=== PATIENT | female | born 1985 | race Two or more races ===

== ENCOUNTER 2016-09-22 09:10 | Day surgery (SDC) | payer OTHER ==
[2016-09-22] VITALS (8 sets, daily range): BP systolic 109–126; BP diastolic 59–79; PULSE 56–104; RESP 14–24; Ht 157.5 cm; Wt 90.0 kg
[~2016-09-22] VITALS: Ht 157.5 cm; Wt 90.0 kg
[~2016-09-22 09:10] MED LIST: CEFAZOLIN 2 GM/50 ML (PMX) 50 ML IVPB ONE; SOD CHLORIDE 0.9% 1,000 ML IV ONE
[2016-09-22] MEDS ORDERED: BUPIVACAINE 0.25% (MPF) 30 ML INJ ONE (10:20)
[2016-09-22] MEDS ORDERED: SUCCINYLCHOLINE CHLORIDE 100 MG/5 ML SYG IV ONE (10:43)
[2016-09-22] MEDS ORDERED: PROPOFOL 20 ML ONE (10:43)
[2016-09-22] MEDS ORDERED: ROCURONIUM 50 MG INJ ONE (10:43)
[2016-09-22] MEDS ORDERED: LIDOCAINE 2% (SDV) 5 ML INJ ONE (10:43)
[2016-09-22] MEDS ORDERED: GLYCOPYRROLATE 0.4 MG INJ ONE (10:43)
[2016-09-22] MEDS ORDERED: NEOSTIGMINE 3 MG/3 ML SYRINGE ONE (10:43)
[2016-09-22] MEDS ORDERED: ONDANSETRON 4 MG INJ ONE (10:58)
[2016-09-22] MEDS ORDERED: CEFAZOLIN 1 GM INJ ONE (10:58)
[2016-09-22] MEDS ORDERED: METOCLOPRAMIDE 10 MG INJ ONE (10:58)
[2016-09-22] MEDS ORDERED: METOCLOPRAMIDE 10 MG INJ IV PRN (11:00)
[2016-09-22] MEDS ORDERED: DIPHENHYDRAMINE 50 MG INJ IV PRN (11:00)
[2016-09-22] MEDS ORDERED: MIDAZOLAM 1 MG/ML 2 ML INJ IV PRN (11:00)
[2016-09-22] MEDS ORDERED: KETOROLAC 30 MG INJ IV PRN (11:00)
[2016-09-22] MEDS ORDERED: ONDANSETRON 4 MG INJ IV PRN (11:00)
[2016-09-22] MEDS ORDERED: KETOROLAC 30 MG INJ ONE (11:06)
[2016-09-22] MEDS ORDERED: BUPIVACAINE 0.25% (MPF) 30 ML INJ INJ ONE (11:25)
--- NOTE | 2016-09-22 13:44 | OPR ---
DATE OF OPERATION: 09/22/2016 INDICATION: This is a 31-year-old female with symptomatic gallstones. She requests surgical excisi on of her gallbladder. Risks, alternatives, benefits, and personnel were discussed with the patient . The patient expressed understanding and consents to the operation. PREOPERATIVE DIAGNOSIS: Symptomatic gallstones. POSTOPERATIVE DIAGNOSIS: Symptomatic gallstones. OPERATION: Laparoscopic cholecystectomy. SURGEON: Kayleigh Borges MD SPECIMENS: Gallbladder. COMPLICATIONS: None. ANESTHESIA: General. PROCEDURE: The patient was taken to the OR, prepped and draped in the usual sterile fashion. Surgi hitesh timeout was performed. IV antibiotics were given. Supraumbilical incision was made in the midl ine with a 15 blade. Dissection cautery was carried down to the fascia which was divided with curve d Hollins scissors. Stay sutures were placed on each side of the fascia. Balloon Cj trocar was in troduced. Pneumoperitoneum established. Midepigastric 12-mm optical trocar was placed under direct visualization. Right upper quadrant and right upper flank 5 mm optical trocars are placed under di rect visualization. Upon initial inspection, there were some adhesions of the gallbladder which wer e taken down bluntly. The cystic duct was identified and critical view was established. The cystic duct and cystic artery are divided using a 35 mm [place] vascular load stapler. Gallbladder was ta leonidas off the gallbladder bed. There were additional clips placed for reinforcement. Gallbladder was retrieved using EndoCatch bag. Ports were removed under direct visualization, stay sutures were ti ed down. Skin was closed using skin ashley. Local anesthesia was injected and dry dressings were applied. Dictated By: KAYLEIGH DOWD/PEYTON Conf#: [id number] DID#: [id number]
[2016-09-22] MEDS ORDERED: IBUPROFEN 800 MG TAB PO ONE (15:00)
== END 2016-09-22 14:40 | disposition home or self-care (01) ==
LOC: SDS 09:10
PROVIDERS: ATTEND Surgery
DX: K80.10 Calculus of gallbladder with chronic cholecystitis without obstruction (principal); I10 Essential (primary) hypertension
CPT/HCPCS: 47562; 84703; 88304; J0330; J0690; J1885; J2405; J2710; J2765; Z7512; Z7610